=== PATIENT | female | born 1980 | race American Indian/Alaskan Native ===

== ENCOUNTER 2018-05-28 08:42 | Emergency (ER) | payer MEDICAID ==
[2018-05-28] MEDS ORDERED: TYLENOL PO ONE (09:13)
[2018-05-28] MEDS ORDERED: REGLAN PO ONE (09:14)
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
--- NOTE | 2018-05-28 12:33 | Ultrasound Report ---
FINAL REPORT EXAM: US OB TRANSVAGINAL HISTORY: pelvic pain COMPARISON: None. TECHNIQUE: Transvaginal obstetric imaging of the pelvis was performed. FINDINGS: The uterus measures 12.8 x 7.7 x 9.5 centimeters and is anteverted. There is a single live intrauterine with heart rate of 176 beats per minute. Biparietal diameter is 1.6 centimeters, corresponding to a gestational age of 12 weeks, 2 days. [place]-rump length measures 5.59 centimeters, corresponding to a gestational age of 12 weeks, 1 day. Composite gestational age by ultrasound is 12 weeks, 2 days, with estimated date of delivery of 12/08. The right ovary measures 3.2 x 1.5 x 2.5 centimeters and is normal in morphology. The left ovary measures 3.6 x 1.9 x 2.8 centimeters and is normal in morphology. IMPRESSION: Single live intrauterine with gestational age by ultrasound of 12 weeks, 2 days, with estim ated date of delivery of 12/08/2018.
--- NOTE | 2018-05-28 12:35 | Ultrasound Report ---
FINAL REPORT EXAM: US OB <= 14 WEEKS FETUS HISTORY: pelvic pain COMPARISON: None. TECHNIQUE: Transabdominal obstetric imaging of the pelvis was performed. FINDINGS: The uterus measures 12.8 x 7.7 x 9.5 centimeters and is anteverted. There is a single live intrauterine with heart rate of 176 beats per minute. Biparietal diameter is 1.6 centimeters, corresponding to a gestational age of 12 weeks, 2 days. [place]-rump length measures 5.59 centimeters, corresponding to a gestational age of 12 weeks, 1 day. Composite gestational age by ultrasound is 12 weeks, 2 days, with estimated date of delivery of 12/08. The right ovary measures 3.2 x 1.5 x 2.5 centimeters and is normal in morphology. The left ovary measures 3.6 x 1.9 x 2.8 centimeters and is normal in morphology. IMPRESSION: Single live intrauterine with gestational age by ultrasound of 12 weeks, 2 days, with estim ated date of delivery of 12/08/2018.
[2018-05-28 12:40] VITALS: BP 112/73
== END 2018-05-28 12:39 | disposition home or self-care (01) ==
LOC: ED 08:42
DX: S39.012A Strain of muscle, fascia and tendon of lower back, initial encounter (principal); R11.2 Nausea with vomiting, unspecified; R10.2 Pelvic and perineal pain; V89.2XXA Person injured in unspecified motor-vehicle accident, traffic, initial encounter; Y93.89 Activity, other specified; Y92.410 Unspecified street and highway as the place of occurrence of the external cause; Y99.8 Other external cause status
CPT/HCPCS: 76801; 76817; 99283